=== PATIENT | female | born 1950 | race Caucasian/White ===

== ENCOUNTER → 2017-06-28 | Outpatient (CLI) | payer MEDICARE, BC ==
[~2017-06-28] MED LIST: BACITRACIN15 GM OINT TOP; CALCIUM 250+D T1 TAB; CO Q 10; EVISTA60 M1; PROZAC; PYRIDIUM; SYNTHROID; VYTORIN
--- NOTE | ~2017-06-28 | BD1 ---
[facility] A Service of [facility] & [facility] RADIOLOGY TEXT RESULTS PATIENT: GIOVANNA DE LA GARZA LOCATION: [facility] : 46 UNIT #: [id number] AGE: [address]: Saba Nazario MD SEX: F ORDER DR: [id number] [facility] [address] [place], [place] [address] [id number] O MR#: [id number] Acc #: [id number] NAME: GIOVANNA DE LA GARZA : 1950 SEX: F STUDY DATE/TIME: 06/28/2017 9:08 UNIT: [facility] ROOM: STUDY DESCRIPTION: BD Dexa Bone Dens 1+ Site Attending Physician: Saba Nazario M.D. Ordering Physician: Saba Nazario M.D. Primary Care Physician: Saba Nazario M.D. MEDICAL IMAGING REPORT This report is preliminary unless electronic signature is present EXAM DXA scan HISTORY 66-year-old female postmenopausal screening for osteoporosis. COMPARISON DXA scan 03/26/2015 FINDINGS Bone density is assessed utilizing Hologic bone densitometer. Total bone density within the lumbar spine was calculated 0.809 g/cm2 with a T score of -2.2. Bone density within the left femoral neck was calculated at 0.579 g/cm2 with a T score of -2.4. When compared to the March 2015 study there has been a 5% improvement in bone density in the lumbar spine which does represent a statistically significant improvement. Bone density remains between 1 to 2.5 standard deviations below the mean is compatible with the World Health Organization criteria for osteopenia. IMPRESSION Bone density within the lumbar spine and left femoral neck is between 1 to 2.5 standard deviations below the mean and is compatible with osteopenia. Statistically significant improvement of lumbar spine bone density when compared to the March 2015 study of approximately 5%. Dictated by... Izabella Freeman M.D. THIS IS AN ELECTRONICALLY VERIFIED REPORT Izabella Freeman M.D. at 06/30/2017 2:32 PM RANDY/karena TD: 06/30/2017 04:20 [facility] A Service of [facility] & [facility] RADIOLOGY TEXT RESULTS PATIENT: GIOVANNA DE LA GARZA LOCATION: [facility] : 46 UNIT #: [id number] AGE: [address]: Saba Nazario MD SEX: F ORDER DR: JOB #: [id number] MEDICAL IMAGING REPORT Page 1 of 1 COPY
--- NOTE | ~2017-06-28 | MY29 ---
[facility] A Service of [facility] / [facility] RADIOLOGY TEXT RESULTS PATIENT: GIOVANNA DE LA GARZA LOCATION: [facility] : 46 UNIT #: [id number] AGE: [address]: Saba Nazario MD SEX: F ORDER DR: [id number] [facility] [address] [place], [place] [address] [id number] O MR#: [id number] Acc #: [id number] NAME: GIOVANNA DE LA GARZA : 1950 SEX: F STUDY DATE/TIME: 06/28/2017 8:42 UNIT: [facility] ROOM: STUDY DESCRIPTION: MY AALIYAH SCREENING W/ CAD BILAT Attending Physician: Saba Nazario M.D. Ordering Physician: Saba Nazario M.D. Primary Care Physician: Saba Nazario M.D. MEDICAL IMAGING REPORT This report is preliminary unless electronic signature is present EXAMINATION Bilateral digital screening mammogram with CAD. DATE 06/28/2017 HISTORY 66-year-old female with family history of breast cancer in her mother diagnosed at the age of 60. No personal history of breast cancer or current complaints. COMPARISON Bilateral screening mammogram, 06/16/2016, 03/26/2015. TECHNIQUE CC and MLO views were obtained of each breast utilizing digital technique and reviewed with an FDA-approved CAD device. FINDINGS Round marker was placed over the lower inner right breast denoting a third nipple. Scattered fibroglandular densities are present bilaterally. A lipoma within the superior left breast is unchanged. The parenchymal pattern appears stable. No new or developing nodule is identified. No architectural distortion or suspicious clustered microcalcifications are seen. IMPRESSION 1. BIRADS category 2. Benign findings. Routine bilateral screening mammogram is recommended in one year. Patients over the age of 40 are entered into a reminder system with target due date for the next mammogram. A result letter will also be sent to the patient. [facility] A Service of [facility] / [facility] RADIOLOGY TEXT RESULTS PATIENT: GIOVANNA DE LA GARZA LOCATION: [facility] : 46 UNIT #: [id number] AGE: [address]: Saba Nazario MD SEX: F ORDER DR: JORDYN: 2 Benign findings. Dictated by... Janae Carrasco M.D. THIS IS AN ELECTRONICALLY VERIFIED REPORT Janae Carrasco M.D. at 06/28/2017 5:03 PM ASIA/mirian TD: 06/28/2017 16:53 JOB #: [id number] MEDICAL IMAGING REPORT Page 1 of 1 COPY
== END | disposition home or self-care (01) ==
LOC: CWCC 08:23
DX: Z12.31 Encounter for screening mammogram for malignant neoplasm of breast (principal); M81.0 Age-related osteoporosis without current pathological fracture; Z80.3 Family history of malignant neoplasm of breast; Z78.0 Asymptomatic menopausal state
CPT/HCPCS: 77080; G0202